=== PATIENT | male | born 1940 | race Caucasian/White ===

== ENCOUNTER 2022-08-25 10:58 | Outpatient (REF) | payer MEDICARE, SELFPAY ==
[2022-08-25 11:49] LABS: IDNOW Serial# BCCEAD1C
[2022-08-25 11:50] LABS: COVID-19 Test Negative (Negative)
== END 2022-08-25 10:59 | disposition home or self-care (01) ==
LOC: HO.LAB 10:58
PROVIDERS: Visit Provider Internal Medicine
DX: Z20.822 Contact with and (suspected) exposure to COVID-19 (principal)
CPT/HCPCS: 87635; C9803

== ENCOUNTER 2024-01-24 09:44 | Outpatient (REF) | payer MEDICARE, SELFPAY ==
[2024-01-24 11:16] LABS: Blood Urea Nitrogen 18 mg/dL (9-16); Estimated Glomerular Filt Rate > 60
== END 2024-01-24 09:45 | disposition home or self-care (01) ==
LOC: HO.LAB 09:44
PROVIDERS: Visit Provider Otolaryngology
DX: R49.0 Dysphonia (principal); J38.01 Paralysis of vocal cords and larynx, unilateral
CPT/HCPCS: 36415; 82565; 84520

== ENCOUNTER 2024-07-30 13:27 | Outpatient (RCR) | payer MEDICARE, SELFPAY ==
--- NOTE | 2024-08-07 17:03 | MHC.SP.ADU ---
Referring provider: Dr. Ray Lorenzo Reason for Referral: Paralysis of vocal folds and larynx, unilateral Type of Treatment: 08514 Evaluation Speech Sound Production WITH Language Date of Plan of Treatment: 08/01/24 Onset of Symptoms/Illness: 08/25/23 Date Treatment Started: 08/01/24 Medical Diagnosis: Paralysis of vocal folds and larynx, unilateral Primary Speech Language Diagnosis: R49.0 Dysphonia History Mr. 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 At that time he could only whisper and was vomiting food and drink. He has no dysphagia now, but persistent hoarseness. He was diagnosed with a left side paralysis, but with adequate close that he is compensating for. 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 Medical History: Other: None reported. Respiratory Needs: Room Air Patient Orientation: Alert & Oriented x 4 Social History: Employment Status: Retired Highest level of education obtained: Current Living Situation: Lives independently, still drives. Assistive Devices in use: Glasses/Contacts Past Speech Language Therapy: None. Other Therapies Seen in Current Calendar Year: None Swallowing History: Dysphagia Specific: Within Functional Limits Reported Speech, Language, Cognition difficulties: Voice Assessment Speech Production: Within Functional Limits Clinical Impression: Intact Informal Voice Assessment: Voice Loudness: Mildly Soft/Quiet Limited Variation Voice Nasal Resonance: Normal Voice Oral Resonance: Normal Voice Phonatory-based Quality: Harsh Hoarse Voice Pitch: Normal Voice Other Observations: Clinical Impression: Impaired Clinicial Observations: Mr. Macdonald completed the Voice Related Quality of Life questionnaire endorsing I am sometimes anxious or frustrated because of my voice and I have become less outgoing because of my voice both (3) A Moderate Amount. Also, I sometimes get depressed because of my voice , (2) A Small Amount. These are the only elevated scores. His voice is perceptually judged to be hoarse. He reports he only drinks two 16 oz bottles of water a day. He drinks a cup of coffee in the morning and an alcoholic beverage at night. LOSS PREVENTION ASSOCIATE encourages increased intake of water and/or supplementation with electrolytes to increase hydration. His prolongation of the vowel ''ah was measured by the [employer] program to yield an acoustic analysis with the following results: MDVPreport: Voice Report Parameter Name Value Unit Norm(m) STD(m) Threshold Average Fundamental Frequency Fo 115.429 Hz 145.223 23.406 Highest Fundamental Frequency Fhi 189.666 Hz 150.080 24.362 Lowest Fundamental Frequency Eleno 87.502 Hz 140.418 23.729 Relative Average Perturbation RAP 1.38 % 0.345 0.333 0.680 Shimmer Percent Kody 6.249 % 1.997 0.997 3.810 Noise to Harmonic Ratio NHR 0.155 0.122 0.014 0.190 Voice Turbulence Index VTI 0.034 0.052 0.016 0.061 Significantly, Shimmer and Perturbation are both shown to be outside functional limits. These are short-term measure of stability and change in vocal folds during phonation and align with the perceptual qualities that Mr. Macdonald is experiencing. Impressions and Recommendations Summary: Mr. Macdonald will benefit from a course of Voice Therapy focusing on Hypofunctional Disorders. Treatment will include education on vocal hygiene, head and neck positioning, diaphragmatic breathing techniques, and easy adduction exercises. The results were discussed with Mr. Macdonald at evaluation and he agrees to try. Prognosis for Improvement: Good Recommendation for Speech Therapy: Outpatient Speech Therapy Frequency/Duration: 1 x week x 12 weeks Date Range for Service Requested: 08/01/24 - 11/30/23 Time to Reassess: 3 months Fpc Goals: LTG1: Mr. Macdonald will improve measures of Shimmer and Perturbation on re-assessment. LTG2: Mr. Macdonald will self-report improvement to his voice. Short Term Goals: Goal # : STG1: Mr. Macdonald will demonstrate back diaphragmatic breathing techniques with >80% accuracy after a training period. Goal Status: New Goal Goal# : STG2: Mr. Macdonald will demonstrate back easy onset speech with /h/-initial words with >80% accuracy after a training period. Goal Status: New Goal Goal # : STG3: Mr. Macodnald will demonstrate back head and neck positioning to improve vocal quality. Goal Status: New Goal Goal # : STG4: Mr. Macdonald will demonstrate self-monitoring of vocal quality in >80% of opportunities with minimal assistance. Goal Status: New Goal Patient Education: Completed: Yes Patient/Caregiver Education: Described Results of Evaluation Patient expressed understanding of evaluation Patient agrees with goals and treatment plan Patient requires further education on strategies Comments/Barriers to Learning: Research Greenhouse Supervisor Clinican/Clinical Fellow: No Supervisory Statement: N/A Speech Language Pathologist: Sarath Mckeon M.A., [facility]-LOSS PREVENTION ASSOCIATE
== END 2024-08-01 15:27 | disposition still patient (30) ==
LOC: HO.SH 13:27
PROVIDERS: PCP Family Medicine; Visit Provider Otolaryngology
DX: J38.00 Paralysis of vocal cords and larynx, unspecified (principal)
CPT/HCPCS: 92523

== ENCOUNTER 2024-08-08 13:53 | Outpatient (RCR) | payer MEDICARE, SELFPAY ==
--- NOTE | 2024-08-14 15:25 | MHC.SL.SOA ---
Referring Provider: Dr. Ray Lorenzo Reason for Referral: Paralysis of vocal folds and larynx, unilateral Date of Plan of Treatment:08/01/24 Onset of Symptoms/Illness:08/25/23 Date Treatment Started:08/01/24 Medical Diagnosis:Unilateral vocal fold paralysis Primary Speech Language Diagnosis:R49.0 Dysphonia Reason for Visit:Non-billable Event Subjective: This is an administrative discharge for Solomon Macdonald. He was evaluated on 08/01/24. He returned for one abbreviated treatment session. He became upset wanting to know, is this going to help me . CATHEAD OPERATOR re-iterated that we would be taking a multipronged approached. He wanted to know if he could be louder. I told him this would put him at risk of vocal fold nodules. He was not pleased with that answer. He demanded I contact the referring provider and recommend a follow-up scope, and informed that he would be going to the office in person. He then left without any of his treatment materials. He called us this morning and left a message that he did not wish to pursue treatment at this time. Objective: See initial evaluation for acoustic measurements of voice. Assessment: No measurable progress could be recorded. Plan: Goal # : STG1: Mr. Macdonald will demonstrate back diaphragmatic breathing techniques with >80% accuracy after a training period. Status of Goal: Discharge Goal Goal # : STG2: Mr. Macdonald will demonstrate back easy onset speech with /h/-initial words with >80% accuracy after a training period. Status of Goal: Discharge Goal Goal # : STG3: Mr. Macdonald will demonstrate back head and neck positioning to improve vocal quality. Status of Goal: Discharge Goal Goal # : STG4: Mr. Macdonald will demonstrate self-monitoring of vocal quality in >80% of opportunities with minimal assistance. Status of Goal: Discharge Goal Seen by: Graduate/Clinical Fellow: No Supervisory Statement: N/a Speech Language Pathologist: Sarath Mckeon M.A., [facility]-CATHEAD OPERATOR
== END 2024-08-15 08:57 | disposition home or self-care (01) ==
LOC: HO.SH 13:53
PROVIDERS: PCP Family Medicine; Visit Provider Otolaryngology
DX: J38.00 Paralysis of vocal cords and larynx, unspecified (principal)
CPT/HCPCS: 92507